=== PATIENT | female | born 1975 | race Hispanic/Latino ===

== ENCOUNTER 2024-08-30 08:18 | Outpatient (CLI) | payer OTHER | END 2024-08-30 08:19 | disposition home or self-care (01) | LOC: BICRAD 08:18 | PROVIDERS: ATTEND Family Medicine | DX: M21.612 Bunion of left foot (principal); M21.611 Bunion of right foot; M79.672 Pain in left foot; M79.671 Pain in right foot; M20.11 Hallux valgus (acquired), right foot; M20.12 Hallux valgus (acquired), left foot ==